=== PATIENT | female | born 1945 | race Caucasian/White ===

== ENCOUNTER 2016-12-23 19:58 | Emergency (ER) | payer MEDICARE, BC ==
[~2016-12-23] VITALS: Ht 172.7 cm; Wt 93.2 kg
[~2016-12-23 19:58] MED LIST: ASPI81TA82 PO; CORE6.25 PO; FURO1TAB93 PO; GLUC5TAB3 PO; LANTINJ SQ; LORA-392 PO; LORTA5 PO; LOSA100T PO; NITR0.4S SL; PANT40IN3 PO; RIVA10 PO; ROSU10 PO; Z.0.WALKERFRONT
[2016-12-23 20:16] VITALS: BP 172/71; PULSE 71; RESP 20; TEMP 97.7; O2SAT 98
[2016-12-23] MEDS ORDERED: METF500T PO (20:30)
[2016-12-23] MEDS ORDERED: LOSA25TA PO (20:30)
[2016-12-23] MEDS ORDERED: FURO1TAB62 PO (20:30)
[2016-12-23] MEDS ORDERED: NEXI20CA PO (20:30)
[2016-12-23] MEDS ORDERED: ZOCO20TA PO (20:30)
[2016-12-23] MEDS ORDERED: GLIP5TAB8 PO (20:30)
[2016-12-23] MEDS ORDERED: ASPI81CH CHEW (20:30)
[2016-12-23] MEDS ORDERED: LANTUS2P SQ (20:30)
[2016-12-23] MEDS ORDERED: CARV3.12 PO (20:30)
--- NOTE | 2016-12-23 20:42 | PD ---
HPI Chief Complaint: Back/ Neck Pain or Injury Time Seen by Provider: 20:37 Travel History International Travel<30 days: No Contact w/Intl Traveler<30days: No Traveled to known affect area: No History of Present Illness HPI 71-year-old female presents emergency department for evaluation of right low back pain 3 hours. Patient reports that she was cleaning her house when she developed right-sided low back pain which she describes as a "locking up" type pain. She reports the pain at times radiates across the low back back. It aggravated by twisting and bending. Relieved with rest. Severity 7 out of 10. Not associated with any other symptoms. She denies chest pain, shortness of breath, dizziness, abdominal pain, nausea or vomiting, weakness in lower extremities. PFSH Past Medical History Hx Anticoagulant Therapy: Yes (ASA) Arthritis: Yes Asthma: Yes Autoimmune Disease: No Blood Disorders: No Anxiety: Yes Depression: Yes Heart Rhythm Problems: Yes ("HISTORY OF SVT") Cancer: Yes (skin cancer in the right leg) Cardiac Catheterization: Yes (STENTS X 2) Cardiovascular Problems: Yes (stents x 2) High Cholesterol: Yes Chemotherapy: No Chest Pain: Yes Congestive Heart Failure: No COPD: No Diabetes: Yes Patient Takes Glucophage: Yes Diminished Hearing: No Endocrine: Yes Gastrointestinal Disorders: Yes (DIVERTICULITIS, ACID REFLUX) GERD: Yes Genitourinary: Yes (INCONTINENCE) Headaches: Yes Hepatitis: No Hiatal Hernia: No Hypertension: Yes Immune Disorder: No Implanted Vascular Access Dvce: Yes Musculoskeletal: Yes (ARTHRITIS) Neurologic: No Psychiatric: Yes (ANXIETY, DEPRESSION) Reproductive: No Respiratory: No Myocardial Infarction: Yes (1998, 2012) Pneumonia: Yes Radiation Therapy: No Sickle Cell Disease: No Sleep Apnea: No Thyroid Disease: Yes Ulcer: Yes ?: Not Menopausal: Yes : 3 Para: 3 Past Surgical History AICD: No Cardiac Surgery: Yes (STENTS X 2) Coronary Stent: Yes (X 2) Joint Replacement: Yes (TITANIUM PLATE C5 & C6) Pacemaker: No Other Surgery: Yes (SKIN GRAFT FROM NECK TO R.LOWER LEG(SQUAMOUS CARCINOMO)) Social History Alcohol Use: No Tobacco Use: No (QUIT 1998- smoked 4 ppd ) Substance Use: No Allergies-Medications (Allergen,Severity, Reaction): Coded Allergies: No Known Allergies (Verified , 12/23/16) Reported Meds & Prescriptions Reported Meds & Active Scripts Active Reported Losartan (Losartan Potassium) 25 Mg Tab Unknown Dose PO DAILY Nexium (Esomeprazole DR) 20 Mg Capdr Unknown Dose PO DAILY Aspirin 81 Mg Chew 81 Mg CHEW DAILY Lantus Inj (Insulin Glargine) 1,000 Unit/10 Ml Vial 60 Units SQ HS Carvedilol 3.125 Mg Tab Unknown Dose PO BID Zocor (Simvastatin) 20 Mg Tab Unknown Dose PO DAILY Glipizide 5 Mg Tab Unknown Dose PO DAILY Take 30 minutes before a meal Metformin (Metformin HCl) 500 Mg Tab Unknown Dose PO BIDPC With meals Lasix (Furosemide) 20 Mg Tab Unknown Dose PO DAILY Review of Systems Except as stated in HPI: all other systems reviewed are Neg General / Constitutional: No: Fever Eyes: No: Visual changes HENT: No: Headaches Cardiovascular: No: Chest Pain or Discomfort Respiratory: No: Shortness of Breath Gastrointestinal: No: Abdominal Pain Genitourinary: No: Dysuria Musculoskeletal: Positive: Other (right low back pain) Physical Exam Narrative GENERAL: Alert, well-appearing female in no acute distress. Patient grimaces with movement and twisting of the back otherwise she appears comfortable resting in the stretcher SKIN: Focused skin assessment warm/dry. HEAD: Atraumatic. Normocephalic. EYES: Pupils equal and round. No scleral icterus. No injection or drainage. ENT: No nasal bleeding or discharge. Mucous membranes pink and moist. NECK: Trachea midline. No JVD. CARDIOVASCULAR: Regular rate and rhythm. No murmur appreciated. RESPIRATORY: No accessory muscle use. Clear to auscultation. Breath sounds equal bilaterally. GASTROINTESTINAL: Abdomen soft, non-tender, nondistended. Hepatic and splenic margins not palpable. MUSCULOSKELETAL: No obvious deformities. No clubbing. No cyanosis. No edema. BACK: Tenderness over the right upper lumbar paraspinous muscle region. No midline spine tenderness. No CVA tenderness NEUROLOGICAL: Awake and alert. No obvious cranial nerve deficits. Motor grossly within normal limits. Normal speech. PSYCHIATRIC: Appropriate mood and affect; insight and judgment normal. Data Data Last Documented VS Vital Signs Date Time Temp Pulse Resp B/P Pulse Ox O2 Delivery O2 Flow Rate FiO2 12/23/16 20:16 97.7 71 20 172/71 98 Orders Ketorolac Inj (Toradol Inj) (12/23/16 20:45) Orphenadrine Inj (Norflex Inj) (12/23/16 20:45) [facility] Medical Decision Making Medical Screen Exam Complete: Yes Emergency Medical Condition: Yes Differential Diagnosis Lumbar strain, muscle spasm, herniated disc, renal colic Narrative Course 71-year-old female presents emergency department for evaluation of right lower back pain after doing housecleaning today. Pain repair patient reports the pain as spasming in nature, worse with movement and twisting of the back. We' ll leave the rest. On exam she has some paraspinous muscle tenderness and spasming on the right side. She denies chest pain, shortness of breath, abdominal pain, nausea vomiting, weakness in the lower 20s. She has a history of back pain and reports pain similar to that. Patient was given a shot of Toradol and Norflex in the emergency department. [id number] patient reassessed at this time she reports symptom improvement. She is requesting discharge at this time. Patient is stable and ready for discharge. Return precautions discussed with patient. She agrees to follow up with her primary care doctor or return if new or worsening symptoms arise. Diagnosis Primary Impression: Lumbar strain Qualified Code: S39.012A - Lumbar strain, initial encounter Referrals: Primary Care Physician Additional Instructions: Take Tylenol or Motrin as needed for pain. He was given a perception for Flexeril which is a muscle relaxer use that for muscle spasming. Make an appointment for follow-up with her doctor this week. Return to emergency department if he had new or worsening symptoms. Scripts Cyclobenzaprine (Flexeril)10 Mg Tab10 Mg PO TID #12 TAB Ref 0 Prov:Melba Castillo 12/23/16 Disposition: 01 DISCHARGE HOME Condition: Stable Melba Castillo Dec 23, 2016 20:42
[2016-12-23] MEDS ORDERED: ORPHENADRINE INJ 60 MG/2 ML AMP IM ONE (20:45)
[2016-12-23] MEDS ORDERED: KETOROLAC TROMETHAMINE 60 MG/2 ML (IM) VIAL IM ONE (20:45)
[2016-12-23] MEDS ORDERED: CYCL1TAB29 PO (21:17)
== END 2016-12-23 21:25 | disposition home or self-care (01) ==
LOC: PHEFT 19:58
DX: S39.012A Strain of muscle, fascia and tendon of lower back, initial encounter (principal); X50.1XXA Overexertion from prolonged static or awkward postures, initial encounter; Y93.E9 Activity, other interior property and clothing maintenance; Y92.009 Unspecified place in unspecified non-institutional (private) residence as the place of occurrence of the external cause
CPT/HCPCS: 96372; 99284; J1885; J2360